=== PATIENT | male | born 1960 | race Caucasian/White ===

== ENCOUNTER → 2021-01-11 18:51 | Outpatient (CLI) | payer OTHER, SELFPAY ==
--- NOTE | 2021-01-11 | DI.RAD.S_ITS ---
PROCEDURE: XR CERVICAL SPINE 2V OR 3V INDICATIONS: Neck Pain TECHNIQUE: 3 view(s) of the cervical spine were acquired. COMPARISON: None. FINDINGS: Bones: No fractures or dislocations to the C7 level. The lateral masses of C1 appear intact on the odontoid view. No suspicious bony lesions. Multilevel disc space narrowing and endplate osteophyte formation. Soft tissues: No prevertebral soft tissue swelling. IMPRESSION: Degenerative disc disease. No acute fracture. No osseous lesion. If symptoms and/or clinical suspicion for pathology persist, further assessment with repeat, or advanced imaging (e.g., CT, MRI, or bone scan) may be helpful for further assessment. Dictated by: Patria Parada M.D. on 01/11/2021 at 19:43 Approved by: Patria Parada M.D. on 01/11/2021 at 19:43
== END ==
PROVIDERS: PCP Internal Medicine; Referring Provider Internal Medicine; Visit Provider Internal Medicine
DX: M50.30 Other cervical disc degeneration, unspecified cervical region (principal)
CPT/HCPCS: 72040

== ENCOUNTER → 2021-02-07 12:12 | Outpatient (CLI) | payer OTHER, SELFPAY ==
--- NOTE | 2021-02-07 12:14 | DI.US.S_ITS ---
PTheROCEDURE: US ABDOMEN LIMITED INDICATIONS: ELEVATED TRANSAMINASE TECHNIQUE: Real-time focused scanning was performed of the abdomen, with image documentation. COMPARISON: None. FINDINGS: The liver demonstrates normal size. The liver demonstrates generalized moderately increased echogenicity. This decreases ultrasound sensitivity for detection of hepatic masses. However, adjacent to the gallbladder, there is a nonvascular focus of relatively decreased echogenicity that measures up to 12 mm. The main portal vein demonstrates normal size and demonstrates normal appearing, hepatopetal flow. At 11 mm gallstone can be seen. The gallbladder wall is not thickened, measuring 3 mm or less. No specific pericholecystic fluid is seen. The sonographic Pickard sign is negative. There is no biliary dilatation, the common bile duct measures 5 mm. The pancreas is not well seen. IMPRESSION: The liver demonstrates increased echogenicity. This finding is nonspecific, yet it is most commonly attributed to fatty infiltration. Apparent focal fatty sparing seen adjacent to the gallbladder. A single gallstone is seen, yet without additional sonographic signs of cholecystitis. Negative for biliary dilatation. Please correlate with physical examination findings, patient presentation, and laboratory values. Dictated by: Real Ramirez M.D. on 02/07/2021 at 12:44 Approved by: Real Ramirez M.D. on 02/07/2021 at 12:45
== END ==
PROVIDERS: PCP Internal Medicine; Referring Provider Internal Medicine; Visit Provider Internal Medicine
DX: R74.01 Elevation of levels of liver transaminase levels (principal); K80.80 Other cholelithiasis without obstruction
CPT/HCPCS: 76705

== ENCOUNTER → 2022-04-09 08:31 | Outpatient (CLI) | payer OTHER, SELFPAY ==
--- NOTE | 2022-04-09 08:34 | DI.RAD.S_ITS ---
PROCEDURE: XR HIP W PEL IF DONE RT 2V INDICATIONS: RIGHT HIP PAIN TECHNIQUE: 2 views of the hip were acquired. COMPARISON: None. FINDINGS: Bones: Moderate right and mild left arthrosis of the hips. Pelvic ring is overall intact. Soft tissues: No suspicious soft tissue calcifications or masses. IMPRESSION: Moderate right and mild left hip arthrosis. Dictated by: Nicholas Skinner M.D. on 04/09/2022 at 10:40 Approved by: Nicholas Skinner M.D. on 04/09/2022 at 10:40
== END ==
PROVIDERS: PCP Internal Medicine; Referring Provider Physician Assistant; Visit Provider Physician Assistant
DX: M25.551 Pain in right hip (principal); M16.0 Bilateral primary osteoarthritis of hip
CPT/HCPCS: 73502

== ENCOUNTER → 2022-05-15 12:44 | Outpatient (CLI) | payer OTHER, SELFPAY ==
[2022-05-15 13:45] LABS: Add Manual Diff / Slide Review NO; Basophils Absolute Auto 0 /uL (0-100); Basophils Percent Auto 0.3 % (0-2); Eosinophils Absolute Auto 100 /uL (0-450); Eosinophils Percent Auto 0.9 % (2-4); Hematocrit 45.2 % (41-53); Hemoglobin 15.8 g/dL (13.5-17.5); Lymphocytes Absolute Auto 1700 /uL (1100-4500); Lymphocytes Percent Auto 24.3 % (25-40); Mean Corpuscular Hemoglobin 31.3 PG (26-34); Mean Corpuscular Volume 89.7 fL (80-100); Monocytes Absolute Auto 500 /uL (0-900); Monocytes Percent Auto 6.9 % (3-14); Neutrophils Absolute Auto 4600 /uL (1500-7000); Neutrophils Percent Auto 67.6 % (50-75); Platelet Count 158 X10^3/uL (150-400); Red Blood Cell Count 5.04 X10^6/uL (4.5-5.9); Red Cell Distribution Width 12.7 % (11.6-14.8); White Blood Cell Count 6.8 X10^3/uL (4.5-11.0)
[2022-05-15 13:53] LABS: Prothrombin Time 11.8 SECONDS (10.1-12.7)
[2022-05-15 13:56] LABS: PTT Partial Thromboplastin Tim 32 SECONDS (26-36)
[2022-05-15 14:09] LABS: BUN Creatinine Ratio 18.7 (6-22); Blood Urea Nitrogen 17 mg/dL (9-20); Carbon Dioxide 28 mmol/L (22-32); Chloride 101 mmol/L (98-107); Estimated Glomerular Filt Rate > 60 mL/min (>60); Glucose 98 mg/dL (80-110); HEMOLYSIS < 15 (0-50); Hemoglobin A1C% w Est Avg Glu 5.9 % (4.0-6.0); Potassium 4.3 mmol/L (3.4-5.1); Sodium 140 mmol/L (137-145)
== END ==
PROVIDERS: PCP Internal Medicine; Referring Provider Orthopaedic Surgery; Visit Provider Orthopaedic Surgery
DX: Z01.818 Encounter for other preprocedural examination (principal); Z01.812 Encounter for preprocedural laboratory examination; R73.9 Hyperglycemia, unspecified; Z51.81 Encounter for therapeutic drug level monitoring
CPT/HCPCS: 36415; 80048; 83036; 85025; 85610; 85730; 93005; 93010

== ENCOUNTER 2023-04-02 06:33 | Day surgery (SDC) | payer OTHER, SELFPAY ==
[2023-03-24 09:47] VITALS: BMI 31.7
[2023-04-02] VITALS (12 sets, daily range): BP systolic 111–121; BP diastolic 59–77; PULSE 60–75; RESP 16; TEMP 36.2–36.6; O2SAT 94–98; BMI 31.7; BMI 35.4
--- NOTE | 2023-04-02 | DI.RAD.S_ITS ---
PROCEDURE: XR HIP W PEL IF DONE RT 2V INDICATIONS: RT ANTERIOR HIP TECHNIQUE: 2 views of the hip were acquired. COMPARISON: [facility], [place], XR HIP W PEL IF DONE RT 2V, 04/09/2022, 8:35. FINDINGS: Fluoroscopic images demonstrate placement of a total right hip replacement. IMPRESSION: Intraoperative fluoroscopic views demonstrating total right hip replacement. Dictated by: Kyle Fuchs M.D. on 04/02/2023 at 10:40 Approved by: Kyle Fuchs M.D. on 04/02/2023 at 10:41
--- NOTE | 2023-04-02 06:00 | DI.RAD.S_ITS ---
PROCEDURE: XR HIP W PEL IF DONE RT 2V INDICATIONS: FATMATA TECHNIQUE: AP pelvis and lateral view of the right hip acquired. COMPARISON: [facility], [facility], XR HIP W PEL IF DONE RT 2V, 04/02/2023, 9:22 FINDINGS: Bones: Patient is status post total right hip arthroplasty, with hardware components in expected positions. The hip joint appears congruent. The visualized bony structures appear intact. Soft tissues: Overlying postoperative changes are noted. No suspicious soft tissue densities. IMPRESSION: Expected immediate postoperative appearance, status post total right hip arthroplasty. Dictated by: Kody Hinojosa M.D. on 04/02/2023 at 11:07 Approved by: Kody Hinojosa M.D. on 04/02/2023 at 11:08
[2023-04-02] MEDS: VANCOMYCIN 1,000 MG/200 ML PIGGYBACK 200 MG IV (07:18)
[2023-04-02] MEDS: ACETAMINOPHEN 325 MG TABLET 975 MG PO (07:19)
[2023-04-02] MEDS: PREGABALIN 75 MG CAPSULE PO (07:20)
[2023-04-02] MEDS: LACTATED RINGERS 1,000 ML 42 ML IV ×2 (07:21→09:39)
--- NOTE | 2023-04-02 07:43 | PM.PREOP ---
Pre-operative Note Interval Note History & Physical reviewed/Exam performed by Physician: Yes Changes to H&P: No
--- NOTE | 2023-04-02 07:44 | PM.OP.1 ---
Operative Date/Time/Diagnoses Date of procedure: 04/02/23 Time of procedure: 08:00 Pre-op diagnosis: right hip OA Post-op diagnosis: same Procedure & Clinicians Procedure: right total hip arthroplasty anterior approach Same procedure as scheduled: Yes Indications: The patient has had progressively worsening right hip pain with radiographic changes consistent with arthritis. Non-operative management has failed and the patient has requested total hip replacement. The risks, benefits and alternatives to surgery were discussed with the patient prior to proceeding. Risks discussed included, but were not limited to, failure to relieve pain, leg length discrepancy, dislocation, stiffness, infection, nerve damage, deep venous thrombosis, pulmonary embolism, stroke, coma, heart attack, permanent paralysis and , as well as the potential need for eventual revision of the prosthetic. Surgeon: Jessica Moser Scheduling Agent: Virgilio Foreman Anesthesia Type: General and Spinal Operative Notes Findings: Severe right hip osteoarthritis, adequate bone adequate stability Closure Type: primary Specimen(s): none sent Prosthetic devices, grafts, tissues, transplants, or devices: [employer]hew 56 mm R3 cup, neutral poly liner, one 6.5 mm screw, size 2 polar stem standard offset Estimated Blood Loss (mL): 250 Blood products transfused: none Procedure in detail: The patient was brought to the operating room. Patient was carefully positioned in the supine position. Time-out was performed and antibiotics were given. Anesthesia was induced. He was positioned in the on the table in order to allow hyperextension of the hip. The right lower extremity was prepped and draped in a standard sterile fashion. An anterior right hip incision was made 1 fingerbreadth lateral to the anterior superior iliac spine and extended distally towards the greater trochanter. Dissection was carried out through skin and subcutaneous tissues. Superficial hemostasis was achieved. The fascia over the tensor fascia shelley was defined and incised with a knife. Two Allis clamps were used to grasp the fascia. Tensor fascia shelley was retracted laterally. A gelpi retractor was placed. Dissection was carried out down along the neck. The circumflex vessels were carefully identified and cauterized with the Aqua Mantis. A PA was used during the procedure and was essential for intraoperative retraction and safe implantation of the components. There was good visualization of the femoral neck. A Cobra was placed superior to the neck and the gluteus fibers were carefully stripped from that superior aspect of the capsule. A 2nd retractor was placed along the inferior aspect of the neck. The rectus insertion along the capsule was partially released. A 3rd retractor that was then gently placed over the rim of the acetabulum under the rectus. Capsule was carefully incised and released from the intertrochanteric line circumferentially superior to the mid sagittal line and inferiorly to the mid sagittal line until the lesser trochanter was palpable. A tag stitch was placed both in the superior and inferior limb of the capsular insertion. Along the acetabulum capsule was also released up to the mid sagittal 12:00 position. A portion of the labrum was resected. A saw was used to perform an osteotomy at the level of the intertrochanteric line and the junction of the superior femoral neck leaving approximately 1 finger breath of residual inferior neck above the lesser trochanter. A 2nd cut was made along the femoral neck at the base of the head and a napkin ring of neck was removed. Corkscrew was placed in the femoral head and the head was removed without difficulty. Retractors were then repositioned around the acetabulum. Residual labrum was resected and additional osteophytes were removed. A reamer that was 4 mm below the templated size was placed by hand in the acetabulum and it was reamed to centralize the acetabulum. It was then reamed up to 2 under the templated size and fluoroscopy was brought in to confirm the position of the reaming and depth of reaming. I reamed 1 under the anticipated size. A trial cup was placed and noted that it was appropriately sized and fluoroscopy confirmed position and depth. The component was open and inserted without difficulty fluoroscopic imaging was used to confirm that the cup had been adequately seated and was well positioned. It was further stabilized with a single screw. Neutral poly liner was placed. The cup was tested and noted to be stable. Attention was then directed to the femur. The femur was gently hyperextended additional capsular release was performed as needed in order to allow adequate visualization of the proximal femur with elevation of the femur. Patient was placed in a hyperextended slightly adducted position with maximum external rotation. Box osteotome was used to check for any residual neck as well as sclerotic bone along the trochanter. [place] pepper was placed in the femur. Additional broaching was performed. Canal finder was used to determine the alignment of the canal and position. Size 1 broach was placed. The canal was then appropriately broached up to the templated size as long as there was adequate stability of the broach and serial advancement of the broach without excessive impingement. Specific attention was directed at avoiding varus attempting to direct the distal aspect of the broach more anteriorly and avoiding excessive anteversion. Trial reduction showed acceptable range of motion, good stability, no posterior impingement, nondenominational of leg length and appropriate lateral shuck. I also hyperflexed the hip and checked that there was no impingement anteriorly and there was good stability with flexion, adduction and internal rotation. Marcaine and Exparel were injected. The stem was placed without difficulty. Repeat trial reduction and x-ray showed acceptable overall position, length, and no evidence of the femoral fracture. Final head was placed. Wound was meticulously irrigated with normal saline. The hip was reduced and additional Exparel and Marcaine were injected. The capsule was closed with interrupted nonabsorbable sutures. The fascia of the tensor was closed with interrupted and running Vicryl. No drain was placed. Any tensor fascia shelley muscle that appeared to be contused or injured which was a minimal amount was carefully resected. Capsule around the tensor was injected with Exparel and Marcaine. The skin was closed with barbed stitches for the subcutaneous tissue and skin. We also used surgical glue. The wound was dressed sterilely. Brief Betadine soak was also used and was meticulously irrigated with normal saline. Patient was transferred to recovery room in satisfactory condition. Complications: none Post-operative Condition: stable Disposition: observation Plan for aftercare: The patient will be maintained on a standard total hip replacement protocol with weight bearing as tolerated and anterior hip precautions. The patient will receive Aspirin and sequential compression devices for DVT prophylaxis. The patient will be discharged home when safe for the home environment.
[2023-04-02] MEDS: CEFAZOLIN 2 GM/100 ML PREMIX 100 ML IV ×2 (07:55→16:02)
[2023-04-02] MEDS: TRANEXAMIC ACID 1,000 MG VIAL 1000 MG INJ ×2 (08:00→10:28)
--- NOTE | 2023-04-02 08:35 | SUR.OPER ---
Supine on padded [place] table with bilateral legs secured in padded positioning boots and suspended in positioning spars, operative leg in traction per surgeon. Head on one pillow. Arm on non-operative side secured on padded armboard <90 degrees abduction. Arm on operative side padded and resting across chest then secured with tape over sheet. Padded perineal post in place per surgeon.
[2023-04-02] MEDS: BUPIVACAINE 0.25% (PF) 60 ML, EPINEPHrine 0.3 MG INJ (08:49)
[2023-04-02] MEDS: SODIUM CHLORIDE IRRIG SOLUTION 250 ML, POVIDONE-IODINE SPONGE STICKS 1 APPLIC IRR (08:50)
[2023-04-02] MEDS: ONDANSETRON 4 MG/2 ML INJ IV (11:11)
[2023-04-02] MEDS: OXYCODONE IR 5 MG TABLET PO ×4 (11:39→20:10)
[2023-04-02] MEDS: ACETAMINOPHEN 325 MG TABLET 650 MG PO ×2 (11:39→17:09)
[2023-04-02] MEDS: LACTATED RINGERS 1,000 ML 100 ML IV ×2 (11:41→21:49)
--- NOTE | 2023-04-02 12:58 | OT.IPNOTE ---
Attempted OT eval , pt still too woozy. Able to give pt anterior hip folder and initiated conversation of equipment needs. PT to check on the pt later.
[2023-04-02] MEDS: IBUPROFEN 400 MG TABLET PO ×3 (13:35→20:10)
--- NOTE | 2023-04-02 18:19 | PT.IIE ---
Addendum entered and electronically signed by Rita Samano PT 04/06/23 08:09: PT direct supervision and direction to PT student. Original Note: Current Diagnoses Unilateral primary osteoarthritis, right hip (04/02/23) Surgery Performed Operation Date: 04/02/23 07:45 Actual Procedures p Total Hip Arthroplasty/Anterior Approach(Right) - Jessica Moser MD Surgical History (Last Updated 03/24/23 @ 10:16 by Yolie Choi, RN) H/O vasectomy History of ankle surgery Hx of heart artery stent Hx of tonsillectomy Medical History (Last Updated 03/24/23 @ 10:37 by Yolie Choi, RN) Acute coronary syndrome (04/2010) Arthritis Back fracture (2001) CAD (coronary artery disease) Fatty liver disease, nonalcoholic GERD (gastroesophageal reflux disease) Gout Heart murmur History of COVID-19 (~04/2021) HLD (hyperlipidemia) HTN (hypertension) Neck fracture (2001) AMIRA on CPAP Osteoarthritis Prediabetes Prostate cancer (02/2023) Physical Therapy Inpatient Evaluation/Re-Eval M1 PT/OT-IP Prior Functional Status Start: 04/02/23 14:09 Freq: NEEDED Status: Active Protocol: Document 04/02/23 14:55 BS (Rec: 04/02/23 15:17 BS [id number]) Medical Review Prior Functional Status Medical History Reviewed Yes Diet/Fluid Consistency Regular Communication WNL Mobility and Gait Indep no AD Activities of Daily Living and IADL's Indep Social History Household Members spouse Living Arrangements House Number of Floors (Floors) Two Floors Number of Stairs To Enter/Railing? 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 Physical Therapy Visit Comments Patient Goals Get to go home Thursday morning Therapy Pain Assessment Pain When Pain Assessed At Rest Pain Present Pain Present Pain Reported Location 4 Intensity 7 Scale Used Numeric (0 - 10) Pain Behaviors Facial Grimacing,Wincing Pain Management Techniques Apply Cold,Re-positioning M4 PT-IP Mobility and Gait Start: 04/02/23 14:09 Freq: NEEDED Status: Active Protocol: Document 04/02/23 14:55 BS (Rec: 04/02/23 15:17 [id number]) PT-Bed Mobility Assessment Rolling Type of Rolling Log Rolling Level of Assist Standby Assistance Supine to Sit Supine to Sit Standby Assistance Scooting Scooting to Edge of Bed Standby Assistance PT-Transfer Assessment Sit to and From Stand Sit to and from Stand Contact Guard Assistance Equipment Transfer Assistive Device Front Wheeled Walker Orthotic/Prosthetic Devices or Brace: No Transfers Transfer Destination Chair Comments Mobility Comments Supine>sit SBA, attempted log roll but unable to complete as usual but was successful with sittin gup, Sit<>stand & ambulation around room CGA w/ FWW. Gait Assessment Gait Gait Assistance Required: Contact Guard Assist Distance (Feet) 25 Able to Maintain Weight Bearing Status Yes During Gait Assistive Devices Assistive Device Gait Belt,Front Wheeled Walker Orthotic/Prosthetic Devices or Brace: No Gait Deviations General Gait Pattern Antalgic,Decreased Stride Length Factors Limiting Gait Function Factors Limiting Gait Function Pain PT-Balance Assessment Sitting Balance and Reactions Static Sitting Balance Ability Good Standing Balance and Reactions Static Standing Balance Ability Good Dynamic Standing Balance Ability Good Device Used FWW M5 PT-IP Objective Assessments Start: 04/02/23 14:09 Freq: NEEDED Status: Active Protocol: Document 04/02/23 14:55 BS (Rec: 04/02/23 15:17 [id number]) Orientation Orientation/Cognition Level of Alertness Alert Language Function Ability No Deficits Noted Safety Awareness Understands Safety Issues Memory Description No Deficits Noted Gross Range of Motion Lower Extremity ROM Assessment Right Impaired Strength Lower Extremity Strength Assessment Right Impaired Hip 3/5 R M6 PT-IP Treatment Start: 04/02/23 14:09 Freq: NEEDED Status: Active Protocol: Document 04/02/23 14:55 BS (Rec: 04/02/23 15:17 BS [id number]) Physical Therapy Treatment Education Education Provided Precautions,Weight Bearing Status,Safety M7 PT-IP Assessment and Plan Start: 04/02/23 14:09 Freq: NEEDED Status: Active Protocol: Document 04/02/23 14:55 BS (Rec: 04/02/23 15:17 BS [id number]) PT Summary Assessment and Plan Potential Rehabilitation Potential Excellent Status of Condition at Evaluation Evolving Summary Impairments Pain,ROM,Strength,Balance,Bed Mobility,Transfers,Gait, Activity Tolerance Assessment Summary Pt seen for PT evaluation s/p R ant FATMATA on 04/02/23. Pt alert on arrival and agreeable to therapy. At rest pt pain in R hip at 7/10, VSS throughout treatement. Pt on 2L O2 NC on arrival, removed for session at SPO2 remained above 95%. Pt was SBA for rolling, supine>sit, & scooting to EOB. CGA & FWW for sit<>stand and gait around room. Pt demonstrated good ability to maintain precautions. Pt ambulated about 25ft before sitting in recliner. Pt set up to comfort level and left with all needs met. Pt would benefit from skilled PT to improve safety for return home. Goals Bed Mobility Goal Independent Transfer Goal Independent,Front Wheeled Walker Gait Goal Independent,Front Wheel Walker Gait Distance 125ft Other Goals up/down 1 step w/o HR SBA Days to Meet Goals 5 Frequency of Treatment Frequency Of Treatment Twice a Day Treatment Plan Physical Therapy Treatment Plan Bed Mobility Training,Transfer Training,Gait Training, Therapeutic Exercise,Balance Retraining,Post Op Education, Discharge Planning, Neuromuscular Re-ed,Manual Therapy Other Recommendations and Next Treatment Review packet information/ Focus exercises, up/down 1 step training, improve gait Precautions Anterior Hip Precautions No Hip Extension,No Hip External Rotation Weight Bearing Status Weight Bearing Status Weight Bear as Tolerated Recommendations To Nursing Amount of Assist Needed Standby Assistance Discharge Recommendations PT Discharge Recommendations Home with Assistance, Outpatient PT Transportation Needs at Discharge Private Vehicle
[2023-04-02] MEDS: ASPIRIN EC 81 MG TABLET PO (20:10)
[2023-04-02] MEDS: DOCUSATE 100 MG CAPSULE PO (20:11)
[2023-04-02] MEDS: TAMSULOSIN 0.4 MG CAPSULE PO (20:11)
[2023-04-03] MEDS: CEFAZOLIN 2 GM/100 ML PREMIX 100 ML IV (00:27)
[2023-04-03] MEDS: ACETAMINOPHEN 325 MG TABLET 650 MG PO ×2 (00:32→08:33)
[2023-04-03] MEDS: IBUPROFEN 400 MG TABLET PO ×2 (00:33→08:32)
[2023-04-03] MEDS: OXYCODONE IR 5 MG TABLET PO ×3 (00:33→11:25)
[2023-04-03 05:05] LABS: Hematocrit 36.7 % (41-53); Hemoglobin 13.2 g/dL (13.5-17.5)
[2023-04-03 07:00] VITALS: BP 113/56; PULSE 58; RESP 20; TEMP 36.6; O2SAT 94
--- NOTE | 2023-04-03 08:20 | PM.PNPO.1 ---
Subjective Subjective Date Patient Seen: 04/03/23 Time Patient Seen: 08:20 Interval history: Patient's pain is [id number]. Denies fever or chills. No nausea or vomiting. Patient has assistance at home. Exam Vital Signs (past 8 hours): - 04/03/23 07:00 Temperature 97.9 F Pulse Rate 58 L Respiratory Rate 20 Blood Pressure 113/56 L Pulse Oximetry 94 Oxygen Flow Rate 0 Oxygen Delivery Method Nasal Cannula Oxygen Flow Rate 0 Narrative Exam Narrative: 62-year-old male resting comfortably in bed in no apparent distress. Motor function is intact bilateral lower extremities. Sensation grossly intact to light touch bilateral lower extremities. Dressing is clean, dry and intact. Const General: cooperative and comfortable Nutritional Appearance: average body habitus Resp Effort & Inspection: normal respiratory effort and able to speak in complete sentences Objective Labs 04/03/23 04:42 Labs: Laboratory Results - last 24 hr 04/03/23 04:42 Hgb 13.2 L Hct 36.7 L PFSH Medical History Fatty liver disease, nonalcoholic Prediabetes History of COVID-19 (~04/2021) Gout Arthritis Osteoarthritis Prostate cancer (02/2023) HTN (hypertension) HLD (hyperlipidemia) Heart murmur GERD (gastroesophageal reflux disease) Back fracture (2001) Neck fracture (2001) Acute coronary syndrome (04/2010) AMIRA on CPAP CAD (coronary artery disease) Surgical History History of ankle surgery Hx of tonsillectomy H/O vasectomy Hx of heart artery stent Social History household members: spouse Smoking Status: Never smoker alcohol intake: current Assessment & Plan Post-op Postoperative Procedures: Procedures Operation Date: 04/02/23 07:45 Actual Procedure Side Surgeon p Total Hip Arthroplasty/Anterior Approach Right Jessica Moser MD Postoperative day: 1 Postoperative status: doing well Postoperative plan: routine post-op care Postoperative plan narrative: Discharge likely home today after physical therapy Quality VTE Deep Vein Thrombosis/Pulmonary Embolism Present on Admission: No
[2023-04-03] MEDS: polyethylene glycoL 3350 17 GM POWD.PACK PO (08:31)
[2023-04-03] MEDS: DOCUSATE 100 MG CAPSULE PO (08:31)
[2023-04-03] MEDS: CLOPIDOGREL 75 MG TABLET PO (08:31)
[2023-04-03 08:32] VITALS: BP 113/56; PULSE 63
[2023-04-03] MEDS: AMLODIPINE 5 MG TABLET 10 MG PO (08:32)
[2023-04-03] MEDS: TAMSULOSIN 0.4 MG CAPSULE PO (08:32)
[2023-04-03] MEDS: carvediloL 3.125 MG TABLET PO (08:32)
[2023-04-03] MEDS: ASPIRIN EC 81 MG TABLET PO (08:33)
--- NOTE | 2023-04-03 08:35 | OT.IP.EVAL ---
Current Diagnoses Unilateral primary osteoarthritis, right hip (04/02/23) Surgery Performed Operation Date: 04/02/23 07:45 Actual Procedures p Total Hip Arthroplasty/Anterior Approach(Right) - Jessica Moser MD Past Medical History (Last Reviewed 04/03/23 @ 08:20 by Virgilio Foreman PA-C) Acute coronary syndrome (04/2010) Arthritis Back fracture (2001) CAD (coronary artery disease) Fatty liver disease, nonalcoholic GERD (gastroesophageal reflux disease) Gout Heart murmur History of COVID-19 (~04/2021) HLD (hyperlipidemia) HTN (hypertension) Neck fracture (2001) AMIRA on CPAP Osteoarthritis Prediabetes Prostate cancer (02/2023) Surgical History (Last Reviewed 04/03/23 @ 08:20 by Virgilio Foreman PA-C) H/O vasectomy History of ankle surgery Hx of heart artery stent Hx of tonsillectomy Occupational Therapy Inpatient Evaluation/Re-Eval M1 PT/OT-IP Prior Functional Status Start: 04/03/23 09:20 Freq: NEEDED Status: Active Protocol: Document 04/03/23 09:20 [facility] (Rec: 04/03/23 09:43 [facility] [id number]) Medical Review Prior Functional Status Medical History Reviewed Yes Diet/Fluid Consistency Regular Communication WNL Mobility and Gait Indep no AD had pain which limited his distance ambulating. Activities of Daily Living and IADL's Indep but had pain. Prior Functional Level (Other details) Pt has a supportive who will be at home to assist. Social History Household Members spouse Living Arrangements House Number of Floors (Floors) Two Floors Number of Stairs To Enter/Railing? 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 M2 OT-IP Current Condition Start: 04/03/23 09:20 Freq: Status: Active Protocol: Document 04/03/23 09:20 [facility] (Rec: 04/03/23 09:43 [facility] [id number]) Occupational Therapy Current Condition Current Condition Evaluation Date 04/03/23 Treatment Diagnosis S/P R FATMATA anterior approach Diagnosis Onset Date 04/02/23 Post Operative Precautions Anterior Hip Precautions No Hip Extension,No Hip External Rotation M3 OT- IP Subjective and Pain Start: 04/03/23 09:20 Freq: Status: Active Protocol: Document 04/03/23 09:20 [facility] (Rec: 04/03/23 09:43 [facility] [id number]) OT- Subjective Occupational Therapy Visit Type Type Initial Evaluation Visit Start Time 08:35 Visit Stop Time 09:20 Total Visit Minutes 45 Occupational Therapy Visit Comments Patient Comments Pt agreed to get dressed but not wanting to shower at this time. Patient/Caregiver Goals TO go home. OT Pain Assessment Pain When Pain Assessed During Mobility Pain Present Pain Present Pain Reported Location 4 Intensity 6 Scale Used Numeric (0 - 10) M4 OT- IP ADL's Start: 04/03/23 09:20 Freq: Status: Active Protocol: Document 04/03/23 09:20 [facility] (Rec: 04/03/23 09:43 [facility] [id number]) OT [facility] General Evaluation Self-Feeding Ability Independent OT ADL-Grooming General Evaluation Grooming Ability Independent OT ADL-Oral Care General Eval Oral Care Ability Independent OT ADL-Dressing General Eval Upper Body Dressing Ability Independent Lower Body Dressing Ability Minimal Assistance,Moderate Assistance Comments OT Dressing Comments Assist his pants over his feet . Cues to dress the right side first and take out last. Able to have pt practice and use the sock aid. Assist to help get on his shoes. OT ADL-Toileting Comments OT Toileting Comments Pt not having to go, educated best to use the FWW over the toilet for safety and use of urinal at night if needed. OT ADL-Bathing Comments OT Bathing Comments Pt's to get a shower chair. M5 OT- IP IADL's Start: 04/03/23 09:20 Freq: Status: Active Protocol: Document 04/03/23 09:20 [facility] (Rec: 04/03/23 09:43 [facility] [id number]) OT-Instrumental Activities of Daily Living Deficits IADL Deficits Identified Deficits Home Safety Awareness Awareness of Need for Assistance at Home Good Awareness Ability to Problem Solve Emergency Able to Problem Solve Situations Medication Management Medication Management No Deficits Identified Money Management Money Management No Deficits Identified Meal Preparation Meal Preparation Comments Pt's to assist. Blogs Manager Blogs Manager Comments Pt's to assist. M6 OT- IP Functional Cognition Start: 04/03/23 09:20 Freq: Status: Active Protocol: Document 04/03/23 09:20 [facility] (Rec: 04/03/23 09:43 [facility] [id number]) Cognitive Factors Limiting Selfcare Function Cognitive Ability Level of Alertness Alert Patient Orientation Name,Age,Birthday,Month,Date, Year,Day of Week,Place, Situation Attention Span Ability Capable of Focused Attention, Capable of Sustained Attention Ability to Follow Commands Able to Follow Multi-Step Commands Safety Awareness Decreased Ability to Apply Precautions Cognitive Comments Cognitive Assessment Comments Pt needing reminders to incorporate his precautions for mobility needs to be sure not to initiate going backwards with his RLE first. M7 OT- IP Mobility and Balance Start: 04/03/23 09:20 Freq: Status: Active Protocol: Document 04/03/23 09:20 [facility] (Rec: 04/03/23 09:43 [facility] [id number]) OT- Bed Mobility Assessment Supine to Sit Supine to Sit Assist Standby Assistance OT-Transfer Assessment Sit to and From Stand Sit to and from Stand Standby Assistance Transfers Transfer Ability Standby Assistance Technique Transfer Destination Bed,Chair Devices Transfer Assistive Devices Gait Belt,Front Wheeled Walker Comments Mobility Comments SBA to get to the edge of the bed and cues not to use the bed rail as he does not have a bed rail at home. Pt cues not to externally rotate his right LE outward. OT- Gait Assessment Comments Gait Ability Comments SBA with FWW. OT- Balance Assessment Sitting Balance and Reactions Static Sitting Balance Ability Normal Dynamic Sitting Balance Ability Good Standing Balance and Reactions Static Standing Balance Ability Normal Dynamic Standing Balance Ability Good M8 OT- IP Objective Assessments Start: 04/03/23 09:20 Freq: Status: Active Protocol: Document 04/03/23 09:20 [facility] (Rec: 04/03/23 09:43 [facility] [id number]) OT Gross Range of Motion Upper Extremity Range of Motion Assessment Within Functional Limits OT Strength Upper Extremity Strength Assessment Within Functional Limits M9 OT- IP Assessment and Plan Start: 04/03/23 09:20 Freq: Status: Active Protocol: Document 04/03/23 09:20 [facility] (Rec: 04/03/23 09:43 [facility] [id number]) OT Summary Assessment and Plan Potential Rehabilitation Potential Excellent Analytic Complexity at Evaluation Low Summary OT Impairments Pain,Strength,Balance, Functional Mobility,Dressing, Toileting,Bathing,Toilet Transfers,Shower Transfers Progress Towards Goals Progressing Toward Goals Assessment Summary Pt low complexity and doing well and just needing reminders to incorporate his hip precautions for mobility needs. Pt has a supportive at home to assist. Pt looking to get a sock aid and his to get a shower chair . Goals Dressing Goal Independent Toileting Goal Independent Bathing Goal Independent Toilet Transfer Goal Independent Shower Transfer Goal Independent Days to Meet Goals 5 Frequency of Treatment Frequency Of Treatment Twice a Day Treatment Plan OT Treatment Plan ADL Training,Functional Mobility,Patient/Family Education,Discharge Planning Discharge Recommendations OT Discharge Recommendations Home with Assistance, Outpatient PT Transportation Needs at Discharge Private Vehicle
--- NOTE | 2023-04-03 09:58 | PT.IPTN ---
Current Diagnoses Unilateral primary osteoarthritis, right hip (04/02/23) Surgery Performed Operation Date: 04/02/23 07:45 Actual Procedures p Total Hip Arthroplasty/Anterior Approach(Right) - Jessica Moser MD Physical Therapy Treatment Note M2 PT-IP Current Condition Start: 04/02/23 14:09 Freq: NEEDED Status: Active Protocol: Document 04/02/23 14:55 BS (Rec: 04/02/23 15:17 BS [id number]) Physical Therapy Current Condition Current Condition Evaluation Date 04/02/23 Treatment Diagnosis s/p R ant FATMATA M3 PT-IP Subjective Start: 04/02/23 14:09 Freq: NEEDED Status: Active Protocol: Document 04/03/23 10:22 TS (Rec: 04/03/23 10:42 TS [id number]) Subjective Physical Therapy Visit Type Type Treatment Note Visit Start Time 09:58 Visit Stop Time 10:21 Total Visit Minutes 23 Number of LOOM SETTER FOURDRINIER Visits 1 Physical Therapy Visit Comments Patient Comments Pt found resting in chair, spouse in room, pt is agreeable to PT. Patient Goals Get to go home Thursday morning Therapy Pain Assessment Pain When Pain Assessed During Mobility Pain Present Pain Present Pain Reported M4 PT-IP Mobility and Gait Start: 04/02/23 14:09 Freq: NEEDED Status: Active Protocol: Document 04/03/23 10:22 TS (Rec: 04/03/23 10:42 TS [id number]) PT-Transfer Assessment Sit to and From Stand Sit to and from Stand Standby Assistance Equipment Transfer Assistive Device Gait Belt,Front Wheeled Walker Orthotic/Prosthetic Devices or Brace: No Comments Mobility Comments Pt recalled 2/2 hip precautions prior to mobility. Sit to stand with FWW SBA with BUE support pushing from arms of chair, pt demonstrates good carryover. He ambulated ~200' SBA with FWW and a step to gait, progressed to emerging step thru gait, demonstrated good awareness of precautions. He performed steps x2 with handheld assist on R side with therapist and x2 with spouse Aleksandar. Pt has some difficulty wbering on R side to perform step, recommended getting cane or another person to support L side. Pt was educated on post- op ex for when at home. PT is recommending pt return home with assist. Gait Assessment Gait Gait Assistance Required: Standby Assistance Distance (Feet) 200 Able to Maintain Weight Bearing Status Yes During Gait Assistive Devices Assistive Device Gait Belt,Front Wheeled Walker Orthotic/Prosthetic Devices or Brace: No Gait Deviations General Gait Pattern Antalgic,Decreased Stride Length,Decreased Feet Clearance,Step-to Gait Factors Limiting Gait Function Factors Limiting Gait Function Pain Comments Gait Comments See mobility comments. Stair Climbing Assessment Evaluation Level of Assist On Stairs Minimal Assistance,1 Person Assistance Devices Stair Climbing Assistive Devices Right Railing Technique/Endurance Stair Climbing Direction Ascend and Descend Stair Climbing Technique Step to Step Number of Steps Climbed 4 Comments Stair Climbing Comments See mobility comments PT-Balance Assessment Sitting Balance and Reactions Static Sitting Balance Ability Normal Dynamic Sitting Balance Ability Good Standing Balance and Reactions Static Standing Balance Ability Good Dynamic Standing Balance Ability Good Device Used FWW M5 PT-IP Objective Assessments Start: 04/02/23 14:09 Freq: NEEDED Status: Active Protocol: Document 04/02/23 14:55 BS (Rec: 04/02/23 15:17 BS [id number]) Orientation Orientation/Cognition Level of Alertness Alert Language Function Ability No Deficits Noted Safety Awareness Understands Safety Issues Memory Description No Deficits Noted Gross Range of Motion Lower Extremity ROM Assessment Right Impaired Strength Lower Extremity Strength Assessment Right Impaired Hip 3/5 R M6 PT-IP Treatment Start: 04/02/23 14:09 Freq: NEEDED Status: Active Protocol: Document 04/03/23 10:22 TS (Rec: 04/03/23 10:42 TS [id number]) Physical Therapy Treatment Education Education Provided Precautions,Weight Bearing Status,Safety M7 PT-IP Assessment and Plan Start: 04/02/23 14:09 Freq: NEEDED Status: Active Protocol: Document 04/03/23 10:22 TS (Rec: 04/03/23 10:42 TS [id number]) PT Summary Assessment and Plan Potential Rehabilitation Potential Excellent Summary Impairments Pain,ROM,Strength,Balance,Bed Mobility,Transfers,Gait, Activity Tolerance Progress Towards Goals Progressing Toward Goals Assessment Summary [place] is making good progress with his mobility. He is SBA for sit to stand with FWW. He progressed his gait to ~200' SBA with FWW and an emerging step thru gait. He performed stairs x4, x2 with therapist and handheld assist on R side and x2 with spouse. Pt is slightly unsteady wbering on R side with steps, recommended having BUE support with use of cane on L side to get into house, spouse stated she will pick one up. PT is recommending pt return home with assist and outpatient PT. Goals Bed Mobility Goal Independent Transfer Goal Independent,Front Wheeled Walker Gait Goal Independent,Front Wheel Walker Gait Distance 125ft Other Goals up/down 1 step w/o HR SBA Days to Meet Goals 5 Frequency of Treatment Frequency Of Treatment Twice a Day Treatment Plan Physical Therapy Treatment Plan Bed Mobility Training,Transfer Training,Gait Training, Therapeutic Exercise,Balance Retraining,Post Op Education, Discharge Planning, Neuromuscular Re-ed,Manual Therapy Other Recommendations and Next Treatment Review packet information/ Focus exercises, up/down 1 step training, improve gait Precautions Anterior Hip Precautions No Hip Extension,No Hip External Rotation Weight Bearing Status Weight Bearing Status Weight Bear as Tolerated Recommendations To Nursing Amount of Assist Needed Standby Assistance Discharge Recommendations PT Discharge Recommendations Home with Assistance, Outpatient PT Equipment Needed for Home Before SPC Discharge Transportation Needs at Discharge Private Vehicle
--- NOTE | 2023-04-03 10:44 | PM.DS.1 ---
History of Present Illness History of Present Illness Date Patient Seen: 04/03/23 Time Patient Seen: 08:15 Chief complaint: right hip pain Narrative: See progress note Discharge Providers Provider Discharge Date: 04/03/23 Primary care physician: Juan Carlos Miller MD Consults: 03/24/23 10:48 Consult to Anesthesiology Routine Comment: Consulting Provider: Anesthesiologist Reason for consultation: Surgeon requested re: Cardiac History 04/02/23 06:00 Consult to Anesthesiology Routine Comment: Consulting Provider: Anesthesiologist Reason for consultation: Regional block for post operative pain control 04/02/23 11:19 Consult to Discharge Planning Routine Comment: Consult to Occupational Therapy Evaluate & Treat Comment: Physician Instructions: Evaluate and treat Consult to Physical Therapy Evaluate & Treat Comment: Physician Instructions: post op FATMATA protocol Discharge provider: Virgilio Foreman PA-C Summary Hospital Course Discharge Diagnosis: Right hip OA Hospital Course: right total hip arthroplasty anterior approach Same procedure as scheduled: Yes Indications: The patient has had progressively worsening right hip pain with radiographic changes consistent with arthritis. Non-operative management has failed and the patient has requested total hip replacement. The risks, benefits and alternatives to surgery were discussed with the patient prior to proceeding. Risks discussed included, but were not limited to, failure to relieve pain, leg length discrepancy, dislocation, stiffness, infection, nerve damage, deep venous thrombosis, pulmonary embolism, stroke, coma, heart attack, permanent paralysis and , as well as the potential need for eventual revision of the prosthetic. Surgeon: Jessica Moser Financial Institution President: Virgilio Foreman Anesthesia Type: General and Spinal Operative Notes Findings: Severe right hip osteoarthritis, adequate bone adequate stability Closure Type: primary Specimen(s): none sent Prosthetic devices, grafts, tissues, transplants, or devices: Moser [employer] Nephew 56 mm R3 cup, neutral poly liner, one 6.5 mm screw, size 2 polar stem standard offset Estimated Blood Loss (mL): 250 Blood products transfused: none Pateint progressing as expected status post right FATMATA. Mobilize with PT. DC home today after PT if safe for home environment. Exam Vital Signs (past 8 hours): - 04/03/23 07:00 04/03/23 08:32 Temperature 97.9 F Pulse Rate 58 L 63 Respiratory Rate 20 Blood Pressure 113/56 L 113/56 L Pulse Oximetry 94 Oxygen Flow Rate 0 Oxygen Delivery Method Nasal Cannula Oxygen Flow Rate 0 Narrative Exam Narrative: See progress note. Objective Labs 12/01/23 04:42 Labs: Laboratory Results - last 24 hr 04/03/23 04:42 Hgb 13.2 L Hct 36.7 L PFSH Medical History Fatty liver disease, nonalcoholic Prediabetes History of COVID-19 (~04/2021) Gout Arthritis Osteoarthritis Prostate cancer (02/2023) HTN (hypertension) HLD (hyperlipidemia) Heart murmur GERD (gastroesophageal reflux disease) Back fracture (2001) Neck fracture (2001) Acute coronary syndrome (04/2010) AMIRA on CPAP CAD (coronary artery disease) Surgical History History of ankle surgery Hx of tonsillectomy H/O vasectomy Hx of heart artery stent Social History household members: spouse Smoking Status: Never smoker alcohol intake: current Discharge Assessment & Plan Assessment and Plan Assessment: Progressing as expected Plan of Treatment: DC home today after PT if safe for home environment. Discharge Plan Discharge orders & Medications Prescriptions: No Action clopidogrel [Plavix] 75 mg Tablet 75 mg PO DAILY aspirin [Aspir-81] 81 mg Tablet,Delayed Release (Dr/Ec) 81 mg PO DAILY tamsulosin 0.4 mg Capsule 0.4 mg PO BID amlodipine 10 mg Tablet 10 mg PO DAILY rosuvastatin 40 mg Tablet 40 mg PO DAILY carvedilol 3.125 mg tablet 3.125 mg PO DAILY Follow up/Referrals: Juan Carlos Miller MD [Primary Care Provider] - Discharge Data Primary Care Provider: Juan Carlos Miller Attending Provider: Jessica Moser VTE Deep Vein Thrombosis/Pulmonary Embolism Present on Admission: No
--- NOTE | 2023-04-03 12:00 | CM.DANOTE ---
Initial DCP Assessment Note Pt is a 62 yo male, resident of [place], now POD#1 from right hip surgery. PCP: Juan Carlos Miller Payer: [facility] Reviewed chart, pt discussed in multidisciplinary rounds this morning. Therapy has cleared pt for return home w/family to assist and pt has planned for home, DC order from Ortho has already been initiated this morning. No barriers identified at this time to patient's safe discharge home w/family to assist; close outpatient f/u recommended. MIGDALIA Schneider Discharge Planning/Care Management CM Discharge Assessment Start: 04/03/23 11:57 Freq: Status: Active Protocol: Document 04/03/23 11:57 DAVID (Rec: 04/03/23 12:00 DAVID [id number]) Discharge Planning Assessment Assigned Slag Expander MIGDALIA Gao DPOA/Assigned Designee Name Donna Kapadia, spouse Contact Information [phone] Advance Directives? No Advance Directives on File No History Provided By Patient,Family Member,Medical Record Prior Living Arrangements House Household Members spouse Type of transporation used prior to Drives own vehicle admit Independent with ADL's Yes Is patient alert and oriented? Yes Barriers to Discharge No Discharge Plan Home Transportation Arrangement Family Referrals Initiated None needed
== END 2023-04-03 11:33 | disposition home or self-care (01) ==
LOC: OR 06:34 → AC 06:36
PROVIDERS: PCP Internal Medicine; Referring Provider Orthopaedic Surgery; Visit Provider Orthopaedic Surgery
PROC: (CPT 27130; principal; 2023-04-02 07:45)
DX: M16.11 Unilateral primary osteoarthritis, right hip (principal); M25.751 Osteophyte, right hip; G47.33 Obstructive sleep apnea (adult) (pediatric); I10 Essential (primary) hypertension; K21.9 Gastro-esophageal reflux disease without esophagitis
CPT/HCPCS: 27130; 36415; 73502; 76000; 85014; 85018; 97116; 97165; 97530; 97535; C1776; J0171; J0690; J1100; J2405; J2704; J3010

== ENCOUNTER 2024-11-04 11:03 | Emergency (ER) | payer OTHER, SELFPAY ==
[2023-04-02 11:22] VITALS: BMI 35.4
[2024-11-04 11:31] VITALS: BP 143/64; PULSE 73; RESP 18; O2SAT 97; BMI 31.0
--- NOTE | 2024-11-04 13:21 | ED.BACK ---
HPI - Back Pain/Injury General Chief Complaint: Back Pain/Injury Stated Complaint: back pain Time Seen by Provider: 11/04/24 13:21 Source: patient, RN notes reviewed and old records reviewed Mode of arrival: EMS Limitations: no limitations History of Present Illness HPI Narrative: 63-year-old male history of coronary artery disease with prior cardiac stent on Plavix daily, hypertension, dyslipidemia, prior cervical fracture that did not require operative repair who presents with complaint of a low back pain after bending over on Thursday feeling that he tweaked it. Patient states pain does not radiate down his legs but causes him to edgar when he tries to ambulate. He states he can lift and move them normally it just causes a lot of discomfort. Denies any loss of bowel or bladder control. No saddle anesthesia. No paresthesias. Patient denies any fevers or chills. No redness or skin changes. He was had upper back issues but not lower back issues in the past. Denies any other trauma. Has tried [id number] acetaminophen and cyclobenzaprine without improvement. States he was to avoid NSAIDs because of his cardiac stent. States prior hip repair and cardiac stent but no other surgical history. No other drug allergies. No tobacco, occasional alcohol, no recreational drugs. Patient states pain was improving a little bit yesterday but then worsened again today which prompted him to come to the ED. Related Data Home Medications ?Medication ?Instructions ?Recorded ?Confirmed amlodipine 10 mg tablet 10 mg PO DAILY 03/24/23 04/02/23 aspirin 81 mg tablet,delayed 81 mg PO DAILY 03/24/23 04/02/23 release clopidogrel 75 mg tablet (Plavix) 75 mg PO DAILY 03/24/23 04/02/23 rosuvastatin 40 mg tablet 40 mg PO DAILY 03/24/23 04/02/23 tamsulosin 0.4 mg capsule 0.4 mg PO BID 03/24/23 04/02/23 carvedilol 3.125 mg tablet 3.125 mg PO DAILY 04/02/23 04/02/23 Previous Rx's ?Medication ?Instructions ?Recorded oxycodone 5 mg tablet 5 mg PO QID PRN pain #14 tabs 11/04/24 prednisone 10 mg tablets in a dose See Rx Instructions PO .COMPLEX 11/04/24 pack #21 ea Allergies Allergy/AdvReac Type Severity Reaction Status Date / Time No Known Drug Allergies Allergy Unknown Verified 04/02/23 06:53 Review of Systems Review of Systems ROS Unobtainable: All systems reviewed & are unremarkable except as noted in HPI and below Patient History Medical History Fatty liver disease, nonalcoholic Prediabetes History of COVID-19 (~04/2021) Gout Arthritis Osteoarthritis Prostate cancer (02/2023) HTN (hypertension) HLD (hyperlipidemia) Heart murmur GERD (gastroesophageal reflux disease) Back fracture (2001) Neck fracture (2001) Acute coronary syndrome (04/2010) AMIRA on CPAP CAD (coronary artery disease) Surgical History History of ankle surgery Hx of tonsillectomy H/O vasectomy Hx of heart artery stent Social History household members: spouse Smoking Status: Never smoker alcohol intake: current Smoking Status: Never smoker alcohol intake frequency: a few times a week Exam Narrative Exam Narrative: GENERAL: Alert and oriented x three, male in moderate distress HEENT: Head normocephalic, atraumatic, EOMI, pupils reactive, face symmetric, moist mucous membranes NECK: Supple, full range of motion CARDIOVASCULAR: Regular rate and rhythm without murmurs, rubs or gallops. RESPIRATORY: Breath sounds equal bilaterally, no wheezes rales or rhonchi. ABDOMEN: Soft, nontender. Normoactive bowel sounds all 4 quadrants. No guarding or rebound, rigidity, no mass : No CVA tenderness BACK: No cervical, thoracic or lumbar vertebral point tenderness. Patient has discomfort lower lumbar sacral area at L5-S1. No warmth, no erythema no skin changes. Patient has normal range of motion, but patient appears uncomfortable rolling to his side. No saddle anesthesia. Muscle strength is 5/5 in lower extremities, DTRs are 2/4 and lower extremities. Dorsalis pedis and tibialis pulses are 2+ and lower extremities. Sensation is intact in the lower extremities. EXTREMITIES: Normal range of motion, no clubbing or edema. Neurovascularly intact NEUROLOGICAL: Cranial nerves II through XII grossly intact. Moving all extremities SKIN: Warm, dry, no petechiae, no rashes or lesions. Initial Vital Signs Initial Vital Signs: Vital Signs Pulse Rate 73 11/04/24 11:31 Respiratory Rate 18 11/04/24 11:31 Blood Pressure 143/64 H 11/04/24 11:31 Pulse Oximetry 97 11/04/24 11:31 Oxygen Delivery Method Room Air 11/04/24 11:31 Course Orders Ordered: ED Orders 11/04/24 13:35 CT lumbar spine wo con Stat Discontinued Medications Diazepam (Diazepam 5 Mg Tablet) 5 mg PO NOW ONE Stop: 11/04/24 13:36 Last Admin: 11/04/24 13:45 Dose: 5 mg Documented By: ES Ketorolac Tromethamine (Ketorolac 30 Mg/Ml Vial) 30 mg IM NOW ONE Stop: 11/04/24 13:36 Last Admin: 11/04/24 13:46 Dose: 30 mg Documented By: ES Oxycodone HCl (Oxycodone Ir 5 Mg Tablet) 5 mg PO NOW ONE Stop: 11/04/24 14:41 Last Admin: 11/04/24 14:53 Dose: 5 mg Documented By: RB Vital Signs Vital signs: Vital Signs - 8 hr 11/04/24 11:31 11/04/24 14:56 Temperature 98.2 F Pulse Rate 73 78 Respiratory Rate 18 18 Blood Pressure 143/64 H 138/68 Pulse Oximetry 97 99 Oxygen Delivery Method Room Air Room Air MDM - Back Pain/Injury MDM Narrative Medical decision making narrative: L-spine CT, mild overall spondylitic changes and trace likely degenerative retrolisthesis on 0 5 on this 1, multilevel disc space height loss, osteophytes facet arthropathy present. No acute height loss. No traumatic subluxation. Cholelithiasis no significant paravertebral fluid conduction. If there is high concern for further derangement consider MRI evaluation. No red flag symptoms in the setting MRI at this time but discussed with the patient discussed return precautions. Patient has had some improvement. He feels comfortable with discharge home. States he has a walker at home if needed. Patient received Toradol and Valium. Patient had some improvement we will do an additional dose of oral oxycodone here in the department. Discharge Plan Departure Patient Disposition: Home Clinical Impression: Low back pain, Gallstones Instructions: DI for Low Back Pain Activity Restrictions/Additional Instructions: Your imaging does show spondylosis and multilevel changes to your back is a trace likely degenerative retrolisthesis of L5 on S1. I do recommend you follow up with primary care for further treatment. Also incidentally you are found to have gallstones on your workup. Take pain medication as prescribed. Continue with the acetaminophen a 1000 mg every 6 hours as needed. You can take oxycodone 1-2 tablets every 6 hours as needed. This medication can make you sleepy do not drive, perform hazardous activities or make any major decisions while taking it. This medication will make you constipated please take a stool softener once to twice daily until stools are soft and regular. Take steroids daily until gone. Prescription sent to [facility] in [place]. Please return for fevers, rapidly worsening symptoms, loss of bowel or bladder control, new weakness, loss of sensation, elevated lift or move your lower extremities or other new or concerning changes. Prescriptions: New oxycodone 5 mg tablet 5 mg PO QID PRN (Reason: pain) Qty: 14 0RF prednisone 10 mg tablets,dose pack See Rx Instructions .ROUTE .COMPLEX Qty: 21 0RF Rx Instructions: 6 tabs p.o. x1 day, then 5 tabs p.o. x1 day, then 4 tablets p.o. x1 day, then 3 tabs p.o. x1 day, then 2 tabs p.o. x1 day, then 1 tab p.o. x1 day No Action clopidogrel [Plavix] 75 mg Tablet 75 mg PO DAILY aspirin [Aspir-81] 81 mg Tablet,Delayed Release (Dr/Ec) 81 mg PO DAILY tamsulosin 0.4 mg Capsule 0.4 mg PO BID amlodipine 10 mg Tablet 10 mg PO DAILY rosuvastatin 40 mg Tablet 40 mg PO DAILY carvedilol 3.125 mg tablet 3.125 mg PO DAILY Referrals: Juan Carlos Miller MD [Physician, Internal Medicine] Stand Alone Forms: Patient Portal/API
--- NOTE | 2024-11-04 13:35 | DI.CT.S_ITS ---
PROCEDURE: CT LUMBAR SPINE WO CON INDICATIONS: low back pain after bending over TECHNIQUE: Noncontrast 3 mm thick sections acquired from the T12 level to the sacrum. Sagittal and coronal reformats were constructed. For radiation dose reduction, the following was used: automated exposure control. COMPARISON: None. FINDINGS: Image quality: Diagnostic Bones: Mild overall spondylotic changes in trace likely degenerative retrolisthesis of L5 on S1. Multilevel disc space height loss, osteophytes, facet arthropathy are present. No acute height loss. No traumatic subluxation. Soft tissues: Cholelithiasis. No significant paravertebral fluid collection. IMPRESSION: Mild overall spondylosis. No acute displaced fracture or traumatic subluxation. If there is high concern for further derangement, consider MRI evaluation. Dictated by: Nicholas Skinner M.D. on 11/04/2024 at 12:48 Approved by: Nicholas Skinner M.D. on 11/04/2024 at 12:51
[2024-11-04] MEDS: KETOROLAC 30 MG/ML VIAL IM (13:46)
[2024-11-04] MEDS: OXYCODONE IR 5 MG TABLET PO (14:53)
[2024-11-04 14:56] VITALS: BP 138/68; PULSE 78; RESP 18; TEMP 36.8; O2SAT 99
== END 2024-11-04 14:56 | disposition home or self-care (01) ==
PROVIDERS: Emergency Provider Emergency Medicine; PCP Internal Medicine
DX: K80.20 Calculus of gallbladder without cholecystitis without obstruction (principal); M54.50 Low back pain, unspecified
CPT/HCPCS: 72131; 96372; 99283; 99284; J1885